=== PATIENT | male | born 1965 | race Caucasian/White ===

== ENCOUNTER 2021-09-28 07:27 | Inpatient (IN) | payer BC ==
[2021-09-28] MEDS ORDERED: ASPIRIN 81 MG PO STA (07:35)
[2021-09-28] MEDS ORDERED: NITROGLYCERIN OINT 1 INCH/GM PACKET TOPICAL STA (07:35)
--- NOTE | 2021-09-28 07:49 | ED ---
General Adult HPI - General Chief complaint: Chest Pain Stated complaint: Chest pain Time Seen by Provider: 09/28/21 07:28 Source: patient, EMS, RN notes reviewed Mode of arrival: EMS Limitations: no limitations - History of Present Illness Initial comments: Patient is a pleasant 55-year-old male presenting to the emergency department with concerns with chest discomfort. Onset of symptoms was around an hour prior to arrival. Discomfort was severe however now is near resolved rated 1/10 following atrial fibrillation by EMS. No history of similar symptoms previously. Discomfort was sternal with some mild radiation towards left arm. No nausea. Patient was sweaty. Patient did feel a little bit short of breath. No history of similar symptoms previously. No leg pain or leg swelling. - Related Data Home Medications Medication Instructions Recorded Confirmed Aspirin Unknown Dose 1 tab PO ONCE PRN 09/28/21 09/28/21 HYDROcodone/APAP 5-325MG [[place] 1 tab PO Q12H PRN 09/28/21 09/28/21 5-325] Allergies Allergy/AdvReac Type Severity Reaction Status Date / Time No Known Allergies Allergy Verified 09/28/21 08:14 Review of Systems ROS Statement: Those systems with pertinent positive or pertinent negative responses have been documented in the HPI. ROS Other: All systems not noted in ROS Statement are negative. Constitutional: Denies: fever Eyes: Denies: eye pain ENT: Denies: ear pain Respiratory: Reports: as per HPI. Denies: cough Cardiovascular: Reports: as per HPI, chest pain Endocrine: Denies: fatigue Gastrointestinal: Denies: abdominal pain, nausea Genitourinary: Denies: dysuria Musculoskeletal: Denies: back pain Skin: Denies: rash Neurological: Denies: weakness Past Medical History Past Medical History: No Reported History Additional Past Medical History / Comment(s): Diverticulitis History of Any Multi-Drug Resistant Organisms: MRSA Date of last positivie culture/infection: 2010 MDRO Source:: finger stitches got infected Additional Past Surgical History / Comment(s): left third and fourth fingertip amputation Past Psychological History: No Psychological Hx Reported Smoking Status: Current every day smoker Past Alcohol Use History: Occasional Past Drug Use History: Marijuana - Past Family History Mother Family Medical History: Hypertension Additional Family Medical History / Comment(s): sepsis General Exam Limitations: no limitations General appearance: alert, in no apparent distress Head exam: Present: normocephalic Eye exam: Present: normal appearance Neck exam: Present: normal inspection Respiratory exam: Present: normal lung sounds bilaterally. Absent: chest wall tenderness Cardiovascular Exam: Present: regular rate, normal rhythm Expanded Peripheral pulses: 2+: Radial (R), Radial (L), Posterior Tibialis (R), Posterior Tibialis (L), Dorsalis Pedis (R), Dorsalis Pedis (L) GI/Abdominal exam: Present: soft. Absent: tenderness Extremities exam: Present: normal inspection. Absent: pedal edema, calf tenderness Neurological exam: Present: alert Psychiatric exam: Present: normal affect, normal mood Skin exam: Present: normal color Course Vital Signs 09/28/21 09/28/21 09/28/21 07:30 07:56 08:29 Temperature 97.8 F Pulse Rate 62 55 L Pulse Rate [ 56 L Pulse Oximetery ] Respiratory 18 16 Rate Blood Pressure 137/102 140/90 O2 Sat by Pulse 95 100 Oximetry EKG Findings - EKG Comments: EKG Findings:: Sinus bradycardia at 58. MT 186. QRS 98. QT 423. QTC 420. Normal axis. Normal QRS. No acute ST change. Medical Decision Making - Medical Decision Making Patient reevaluated. Patient and family updated. Patient symptom-free at this time. Case was discussed with practitioner Juan C, who will admit covering for hospital observation call. Case also discussed with Dr. Castillo with cardiology. He does request echo. Heparin started. - Lab Data Result diagrams: 09/28/21 07:49 09/28/21 07:49 Lab Results 09/28/21 09/28/21 09/28/21 Range/Units 07:49 07:49 07:49 WBC 7.7 (3.8-10.6) k/uL RBC 4.74 (4.30-5.90) m/uL Hgb 15.3 (13.0-17.5) gm/dL Hct 46.1 (39.0-53.0) % MCV 97.4 (80.0-100.0) fL MCH 32.2 (25.0-35.0) pg MCHC 33.1 (31.0-37.0) g/dL RDW 13.4 (11.5-15.5) % Plt Count 337 (150-450) k/uL MPV 7.4 Neutrophils % 57 % Lymphocytes % 31 % Monocytes % 4 % Eosinophils % 5 % Basophils % 1 % Neutrophils # 4.3 (1.3-7.7) k/uL Lymphocytes # 2.4 (1.0-4.8) k/uL Monocytes # 0.3 (0-1.0) k/uL Eosinophils # 0.4 (0-0.7) k/uL Basophils # 0.1 (0-0.2) k/uL PT 10.6 (9.0-12.0) sec INR 1.0 (<1.2) APTT 21.8 L (22.0-30.0) sec D-Dimer 0.24 (<0.60) mg/L FEU Sodium 140 (137-145) mmol/L Potassium 4.1 (3.5-5.1) mmol/L Chloride 109 H (98-107) mmol/L Carbon Dioxide 21 L (22-30) mmol/L Anion Gap 10 mmol/L BUN 19 (9-20) mg/dL Creatinine 0.91 (0.66-1.25) mg/dL Est GFR (CKD-EPI)AfAm >90 (>60 ml/min/1.73 sqM) Est GFR (CKD-EPI)NonAf >90 (>60 ml/min/1.73 sqM) Glucose 102 H (74-99) mg/dL Calcium 9.2 (8.4-10.2) mg/dL Magnesium 2.1 (1.6-2.3) mg/dL Total Bilirubin 0.5 (0.2-1.3) mg/dL AST 33 (17-59) U/L ALT 16 (4-49) U/L Alkaline Phosphatase 63 (38-126) U/L Troponin I (0.000-0.034) ng/mL Total Protein 7.2 (6.3-8.2) g/dL Albumin 4.2 (3.5-5.0) g/dL 09/28/21 Range/Units 07:49 WBC (3.8-10.6) k/uL RBC (4.30-5.90) m/uL Hgb (13.0-17.5) gm/dL Hct (39.0-53.0) % MCV (80.0-100.0) fL MCH (25.0-35.0) pg MCHC (31.0-37.0) g/dL RDW (11.5-15.5) % Plt Count (150-450) k/uL MPV Neutrophils % % Lymphocytes % % Monocytes % % Eosinophils % % Basophils % % Neutrophils # (1.3-7.7) k/uL Lymphocytes # (1.0-4.8) k/uL Monocytes # (0-1.0) k/uL Eosinophils # (0-0.7) k/uL Basophils # (0-0.2) k/uL PT (9.0-12.0) sec INR (<1.2) APTT (22.0-30.0) sec D-Dimer (<0.60) mg/L FEU Sodium (137-145) mmol/L Potassium (3.5-5.1) mmol/L Chloride (98-107) mmol/L Carbon Dioxide (22-30) mmol/L Anion Gap mmol/L BUN (9-20) mg/dL Creatinine (0.66-1.25) mg/dL Est GFR (CKD-EPI)AfAm (>60 ml/min/1.73 sqM) Est GFR (CKD-EPI)NonAf (>60 ml/min/1.73 sqM) Glucose (74-99) mg/dL Calcium (8.4-10.2) mg/dL Magnesium (1.6-2.3) mg/dL Total Bilirubin (0.2-1.3) mg/dL AST (17-59) U/L ALT (4-49) U/L Alkaline Phosphatase (38-126) U/L Troponin I 0.112 H* (0.000-0.034) ng/mL Total Protein (6.3-8.2) g/dL Albumin (3.5-5.0) g/dL - Radiology Data Radiology results: image reviewed (Chest x-ray shows no acute pulmonary disease. Chronic changes.) Critical Care Time Critical Care Time: Yes Total Critical Care Time: 32 Disposition Clinical Impression: Acute non-ST elevation myocardial infarction (NSTEMI) Disposition: ADMITTED IP TO THIS [facility] Referrals: None,Stated [Primary Care Provider] - 1-2 days Time of Disposition: 08:58
[2021-09-28 08:00] LABS: Basophils # (A) 0.1 k/uL (0-0.2); Basophils % (A) 1 %; Eosinophils # (A) 0.4 k/uL (0-0.7); Eosinophils % (A) 5 %; HCT 46.1 % (39.0-53.0); HGB 15.3 gm/dL (13.0-17.5); Lymphocytes # (A) 2.4 k/uL (1.0-4.8); Lymphocytes % (A) 31 %; MCH 32.2 pg (25.0-35.0); MCHC 33.1 g/dL (31.0-37.0); MCV 97.4 fL (80.0-100.0); Mean Platelet Volume 7.4; Monocytes # (A) 0.3 k/uL (0-1.0); Monocytes % (A) 4 %; Neutrophils # (A) 4.3 k/uL (1.3-7.7); Neutrophils % (A) 57 %; Platelet Count 337 k/uL (150-450); RBC 4.74 m/uL (4.30-5.90); RDW 13.4 % (11.5-15.5); WBC 7.7 k/uL (3.8-10.6)
[2021-09-28 08:11] LABS: ALT 16 U/L (4-49); AST 33 U/L (17-59); African American GFR (CKD) >90 (>60 ml/min/1.73 sqM); Albumin 4.2 g/dL (3.5-5.0); Alkaline Phosphatase 63 U/L (38-126); Anion Gap 10 mmol/L; Blood Urea Nitrogen 19 mg/dL (9-20); Calcium 9.2 mg/dL (8.4-10.2); Carbon Dioxide 21 mmol/L (22-30); Chloride 109 mmol/L (98-107); Glucose 102 mg/dL (74-99); Magnesium 2.1 mg/dL (1.6-2.3); Non-African American GFR(CKD) >90 (>60 ml/min/1.73 sqM); Potassium 4.1 mmol/L (3.5-5.1); Sodium 140 mmol/L (137-145); Total Bilirubin 0.5 mg/dL (0.2-1.3); Total Protein 7.2 g/dL (6.3-8.2)
--- NOTE | 2021-09-28 08:14 | XR ---
EXAMINATION TYPE: XR chest 2V DATE OF EXAM: 09/28/2021 HISTORY: Shortness of breath. COMPARISON: None. TECHNIQUE: Single view of the chest is submitted. FINDINGS: Demonstrated are scattered senescent parenchymal change. There is no evidence for focal infiltrate. The heart is stable. Hilar and mediastinal structures are within normal limits. Degenerative changes are seen of the dorsal spine. IMPRESSION: 1. Chronic changes without evidence for acute pulmonary disease.
[2021-09-28 08:32] LABS: Partial Thromboplastin Time 21.8 sec (22.0-30.0); Prothrombin Time 10.6 sec (9.0-12.0)
[2021-09-28] MEDS ORDERED: NITROGLYCERIN SL TABS 0.4 MG TAB SUBLINGUAL PRN (08:56)
[2021-09-28] MEDS ORDERED: HEPARIN SODIUM 1,000 UN/ML (10ML VL) IV ONE (08:56)
[2021-09-28] MEDS ORDERED: NALOXONE 0.4 MG/ML 10 ML VIAL IVP PRN (08:56)
[2021-09-28] MEDS ORDERED: HEPARIN SODIUM 1,000 UN/ML (10ML VL) IV PRN (08:56)
[2021-09-28] MEDS ORDERED: HEPARIN SOD,PORK IN 0.45% NACL 25,000 UNIT in 0.45% NACL 1 250ML.BAG IV SCH (09:00)
[2021-09-28] MEDS ORDERED: NALOXONE 0.4 MG/ML 1 ML VIAL IVP PRN (09:04)
[2021-09-28] MEDS: ATORVASTATIN 80 MG TAB PO SCH (09:13)
[2021-09-28] MEDS ORDERED: SODIUM CHLORIDE 0.9% 1,000 ML IV ONE (09:40)
[2021-09-28] MEDS ORDERED: HEPARIN SODIUM 1,000 UN/ML (10ML VL) ONE (09:41)
[2021-09-28] MEDS ORDERED: VERAPAMIL 2.5 MG/ML 2 ML AMP ONE (09:41)
[2021-09-28] MEDS ORDERED: MIDAZOLAM 2 MG/2 ML VIAL IVP ONE (09:48)
[2021-09-28] MEDS ORDERED: LIDOCAINE 1% INJ 10MG/ML (5 ML VIAL-PF) SQ ONE (09:50)
[2021-09-28] MEDS ORDERED: VERAPAMIL SYRINGE (5 MG/10 ML) INTRAARTER ONE (09:54)
[2021-09-28] MEDS: HEPARIN SODIUM 1,000 UN/ML (10ML VL) IVP ONE ×2 (09:56→10:41)
[2021-09-28] MEDS ORDERED: fentaNYL (PF) 50 MCG/ML 2 ML AMP ONE (09:58)
[2021-09-28] MEDS ORDERED: fentaNYL (PF) 50 MCG/ML 2 ML AMP IVP ONE (10:00)
[2021-09-28] MEDS ORDERED: IOPAMIDOL-370 125ML BTL INJ ONE (11:14)
[2021-09-28] MEDS: CLOPIDOGREL 75 MG TAB PO SCH (11:43)
[2021-09-28] MEDS: HEPARIN SOD,PORK IN 0.45% NACL 25,000 UNIT in 0.45% NACL 1 250ML.BAG IV SCH (11:43)
[2021-09-28] MEDS: NITROGLYCERIN OINT 1 INCH/GM PACKET TOPICAL SCH ×3 (11:52→22:00)
[2021-09-28] MEDS ORDERED: HEPARIN SOD,PORK IN 0.45% NACL 25,000 UNIT in 0.45% NACL 1 250ML.BAG IV ONE (12:13)
[2021-09-28] MEDS ORDERED: NICOTINE 7MG/24HR PATCH TRANSDERM PRN (12:28)
--- NOTE | 2021-09-28 14:15 | CONS ---
CONSULTATION CHIEF COMPLAINT: Chest pain. This is 55-year-old gentleman with strong family history of premature coronary artery disease who presented to hospital with sudden-onset chest pain. His chest discomfort started around 6:15 this morning. EKG done by the EMS and the subsequent EKG done in the emergency room did not reveal any acute ischemic changes. He describes it as a precordial chest pressure, moderate to severe intensity, that radiated to left arm. At the time of my evaluation he is feeling better, having received nitro. The first set of troponin had come back elevated at 0.1. Hemoglobin is normal. Platelet count is normal. Potassium and creatinine are normal. His clinical presentation is consistent with acute coronary syndrome and I advised him to undergo cardiac catheterization for further evaluation. I discussed risks, benefits and alternatives. He understood and accepted. PAST MEDICAL HISTORY: Negative for hypertension, diabetes, dyslipidemia. The patient has a hernia. CURRENT MEDICATIONS: Current medications include [place] and aspirin. ALLERGIES: NO KNOWN DRUG ALLERGIES. FAMILY HISTORY: Significant for premature coronary artery disease. SOCIAL HISTORY: Significant for smoking. There is no history of EtOH abuse or drug abuse. REVIEW OF SYSTEMS: HEENT is unremarkable. CARDIAC: As described above. RESPIRATORY: As described above. GI: Negative. GENITOURINARY: Negative. ALLERGY/IMMUNOLOGY: Negative. SKIN: Negative. MUSCULOSKELETAL: Negative. ENDOCRINE: Negative. DERMATOLOGY: Negative. CONSTITUTIONAL: Negative. ONCOLOGICAL: Negative. DOCK COORDINATOR: Negative. Rest of the system review is not relevant. PHYSICAL EXAMINATION: Comfortable at rest. Vital signs are stable. There is no jugular venous distention. Carotid upstroke is normal. There is no bruit. Chest exam reveals good air entry bilaterally. Heart exam reveals first and second heart sounds. No gallop. No murmur. No rub. Abdomen is soft, nontender. Examination of extremities did not reveal any edema. Peripheral pulses are felt. LABS: Labs show that the hemoglobin is normal, platelet count is normal. Potassium is 4.1. Creatinine is 0.9. Troponin is slightly elevated. AST and ALT are within normal limits. ASSESSMENT: Acute bax-GH-iaoryym-elevation myocardial infarction PLAN: Patient will undergo cardiac catheterization this morning. We will decide on further course of action based on test results. He already received aspirin, has nitro paste on, and is going to receive a bolus of IV heparin and start the drip if necessary. MMODL / IJN: [id number] /
[2021-09-28] MEDS: ACETAMINOPHEN TAB 325 MG TAB PO PRN ×2 (14:57→22:00)
--- NOTE | 2021-09-28 15:06 | CC ---
CARDIAC CATHETERIZATION REPORT INDICATION: Acute ket-AX-rvdoxge-elevation SC. PROCEDURE NOTE: After obtaining informed consent, left heart catheterization and coronary angiogram were performed via the right radial artery using 3-1/2 right and left Javier catheters. The patient tolerated the procedure well without any obvious immediate complications. Right radial artery access was obtained using a micropuncture needle, and catheter and wire were floated into the ascending aorta under fluoroscopic guidance. Catheters were exchanged in the aortic root. Patient received 5 mg of verapamil and a total of 5000 units of IV heparin per protocol. FINDINGS: Central aortic pressure is 120/70 mm. LEFT VENTRICULOGRAM: Left ventriculogram was not performed. ANGIOGRAPHIC DATA: Right coronary artery is a large dominant vessel and is free of significant stenosis. Left main coronary artery is a normal-sized vessel and is free of significant disease. It divides into circumflex coronary artery and left anterior descending coronary artery. Proximal LAD has an area of plaque rupture with a 70% to 80% stenosis. This is the vessel that is responsible for the cvp-VX-xolaxar elevation SC. CONCLUSIONS: Focal stenosis in the proximal LAD, 70% to 80% stenosed. I am going to have Dr. Vangie Jha review the angiographic data and advise on angioplasty with stent. MMODL / IJN: [id number] /
--- NOTE | 2021-09-28 15:26 | PCN ---
PROCEDURE NOTE DATE OF SERVICE: 09/28/2021. PROCEDURE: IFR assessment of left anterior descending coronary artery. PERFORMED BY: Dr. Vangie Jha. Moderate conscious sedation time was 30 minutes. Patient was administered Versed. Oxygen saturation, hemodynamics and EKG were monitored closely. CLINICAL INFORMATION: Mr. Martinez is a 55-year-old gentleman who presented with chest pain and underwent cardiac catheterization by Dr. Peace. There was borderline troponin elevation. Cardiac catheterization revealed a hazy area in the mid LAD location, and I suggested that we perform an IFR. The clinical scenario looked like that of a plaque rupture and the lesion also was hazy, but there was good SRIDEVI-3 flow. PROCEDURE NOTE: The existing 6-Kyrgy[place] introducer in the right radial artery was used to perform the procedure. I had difficulty getting the wire into the ascending aorta. With some manipulation and a Glidewire, I was able to get into the ascending aorta, and using a JL3.5 guide catheter I cannulated the left coronary artery. I advanced the IFR wire way into the distal aspect of the LAD. I did the calibration as per protocol. We gave intracoronary nitroglycerin and I disengaged the guide catheter. I performed IFR. At least 4 readings were obtained. The first reading was 0.83. The subsequent 3 readings were 0.90, 0.93 and 0.97. SRIDEVI-3 flow was noted. After some deliberation, I suggested that we treat him with aspirin and Plavix and repeat another coronary angiogram in 48 to 72 hours. I discussed my thoughts in detail with the patient and family and also spoke to Dr. Peace. I would recommend a repeat cardiac catheterization either Friday or Friday, and if the lesion is significant perform intervention; otherwise pursue medical therapy. I would also recommend an echocardiogram to be performed. A TR band was applied as per protocol. Saturation in the fingers was 95%. He was sent to the room in a stable condition. FINAL IMPRESSION: IFR negative lesion noted in proximal/mid LAD. Repeat cardiac catheterization advised, given the clinical scenario and the hazy appearance of the lesion. Aspirin and Plavix will be given. MMODL / IJN: [id number] /
--- NOTE | 2021-09-28 16:02 | P.HPIM ---
History of Present Illness H&P Date: 09/28/21 History of Presenting Illness: Patient is a very pleasant 55-year-old male with a past medical history of diverticulosis and inguinal hernia. He presented to the emergency department with a chief complaint of chest pain/discomfort. Patient reports around 6:30 this morning he began feeling pain/discomfort to left internal chest in which he described as a pressure like discomfort that radiated into his left shoulder accompanied by dizziness/lightheadedness, shortness of breath, and diaphoresis. Patient denied having any headache, palpitations, nausea, vomiting, or experie ncing any numbness/tingling/weakness in his extremities. Patient denies having any cardiac history but does report a family history of cardiovascular disease and states that he does not follow with a primary care provider and is pretty certain he has undiagnosed hypertension. In the emergency department patient underwent full evaluation. EKG was completed revealing sinus bradycardia at 58 bpm with no noted T-wave or ST abnormalities showing no signs of acute ischemia. Chest x-ray was negative for acute cardiopulmonary process. CBC, coags, and CMP showing no significant abnormalities. Initial troponin resulting in 0.112. Patient given aspirin and started on heparin infusion ACS protocol. Patient admitted under our services with consultation to cardiology. Cardiology taking patient to laborer this morning. Review of systems: Pertinent positives and negatives as discussed in HPI, a complete review of systems was performed and all other systems are negative. Physical exam: Vital signs reviewed and stable. General: Nontoxic, no distress and appears stated age. Derm: Skin warm and dry, normal coloration for ethnicity. Head: Atraumatic, normocephalic and symmetric. Eyes: EOMs intact, no lid lag, and anicteric sclera Mouth: no lip lesions, mucus membranes moist Cardiovascular: regular rate and rhythm with normal S1S2, no murmur, positive posterior tibial pulses bilaterally, and cap refill < 2 seconds. Lungs: Respirations even, regular, and unlabored on room air. Lungs CTA bilaterally, no rhonchi, no rales, no wheezing, and no accessory muscle usage. Abdominal: soft, nontender to palpation, no guarding, no appreciable organomegaly Ext: ROM intact. No gross muscle atrophy, no edema, no contractures Neuro: Speech clear, face symmetrical and CN II-XII grossly intact with no noted focal neuro deficits Psych: Alert and oriented to person, place, time, and situation. Appropriate and pleasant affect. Assessment and Plan of Care: NSTEMI Sinus bradycardia -Cardiology consulted, taking patient to laborer -Heparin infusion per ACS protocol for NSTEMI -Telemetry monitoring -Trend troponins -Aspirin and atorvastatin -Lipid profile with a.m. labs. -Echocardiogram The patient is admitted with an anticipated greater than 2 midnight stay for evaluation of NSTEMI CODE STATUS: Full code DVT prophylaxis: Heparin Discussed with: Patient, patient's family, and RN Anticipated discharge date: Clinical course to determine Anticipated discharge place: Home A total of 45 minutes was spent on the care of this complex patient more than 50% of the time was spent in counseling and care coordination. Past Medical History Past Medical History: No Reported History Additional Past Medical History / Comment(s): Diverticulitis History of Any Multi-Drug Resistant Organisms: MRSA Date of last positivie culture/infection: 2010 MDRO Source:: finger stitches got infected Additional Past Surgical History / Comment(s): left third and fourth fingertip amputation Past Psychological History: No Psychological Hx Reported Smoking Status: Current every day smoker Past Alcohol Use History: Occasional Past Drug Use History: Marijuana - Past Family History Mother Family Medical History: Hypertension Additional Family Medical History / Comment(s): sepsis Medications and Allergies Home Medications Medication Instructions Recorded Confirmed Type Aspirin Unknown Dose 1 tab PO ONCE PRN 09/28/21 09/28/21 History HYDROcodone/APAP 5-325MG [[place] 1 tab PO Q12H PRN 09/28/21 09/28/21 History 5-325] Allergies Allergy/AdvReac Type Severity Reaction Status Date / Time No Known Allergies Allergy Verified 09/28/21 08:14 Physical Exam Vitals: Vital Signs Temp Pulse Pulse Resp BP Pulse Ox 09/28/21 08:29 55 L 16 140/90 100 09/28/21 07:56 56 L 09/28/21 07:30 97.8 F 62 18 137/102 95 Intake and Output 09/27/21 09/28/21 09/28/21 22:59 06:59 14:59 Other: Weight 99.79 kg Results CBC & Chem 7: 09/28/21 07:49 09/28/21 07:49 Labs: Abnormal Lab Results - Last 24 Hours (Table) 09/28/21 09/28/21 09/28/21 Range/Units 07:49 07:49 07:49 APTT 21.8 L (22.0-30.0) sec Chloride 109 H (98-107) mmol/L Carbon Dioxide 21 L (22-30) mmol/L Glucose 102 H (74-99) mg/dL Troponin I 0.112 H* (0.000-0.034) ng/mL
[2021-09-28] MEDS: SODIUM CHLORIDE 0.9% 1,000 ML IV SCH (17:13)
[2021-09-29] MEDS: SODIUM CHLORIDE 0.9% 1,000 ML IV SCH (02:36)
[2021-09-29] MEDS: ACETAMINOPHEN TAB 325 MG TAB PO PRN (06:14)
[2021-09-29] MEDS: PANTOPRAZOLE 40 MG TABLET PO SCH (06:15)
[2021-09-29] MEDS: NITROGLYCERIN OINT 1 INCH/GM PACKET TOPICAL SCH ×4 (06:15→23:26)
[2021-09-29] MEDS: HYDROcodone/APAP 5-325MG 1 EACH TAB PO PRN ×2 (08:07→15:20)
[2021-09-29] MEDS: CLOPIDOGREL 75 MG TAB PO SCH (08:07)
[2021-09-29] MEDS: ATORVASTATIN 80 MG TAB PO SCH (08:07)
[2021-09-29] MEDS ORDERED: ASPIRIN 81 MG PO SCH (09:00)
[2021-09-29 09:10] LABS: Basophils # (A) 0.1 k/uL (0-0.2); Basophils % (A) 1 %; Eosinophils # (A) 0.3 k/uL (0-0.7); Eosinophils % (A) 4 %; HCT 41.3 % (39.0-53.0); HGB 13.4 gm/dL (13.0-17.5); Lymphocytes % (A) 24 %; MCH 32.5 pg (25.0-35.0); MCHC 32.5 g/dL (31.0-37.0); Mean Platelet Volume 7.9; Monocytes # (A) 0.3 k/uL (0-1.0); Monocytes % (A) 3 %; Neutrophils # (A) 5.6 k/uL (1.3-7.7); Neutrophils % (A) 67 %; Platelet Count 256 k/uL (150-450); RBC 4.13 m/uL (4.30-5.90); RDW 13.3 % (11.5-15.5); WBC 8.4 k/uL (3.8-10.6)
[2021-09-29 09:19] LABS: Partial Thromboplastin Time 53.7 sec (22.0-30.0); Prothrombin Time 11.2 sec (9.0-12.0)
[2021-09-29 09:25] LABS: African American GFR (CKD) >90 (>60 ml/min/1.73 sqM); Anion Gap 8 mmol/L; Blood Urea Nitrogen 14 mg/dL (9-20); Calcium 8.2 mg/dL (8.4-10.2); Carbon Dioxide 19 mmol/L (22-30); Chloride 111 mmol/L (98-107); Glucose 146 mg/dL (74-99); Non-African American GFR(CKD) >90 (>60 ml/min/1.73 sqM); Sodium 138 mmol/L (137-145)
--- NOTE | 2021-09-29 13:41 | P.PN ---
Subjective Progress Note Date: 09/29/21 History of Presenting Illness: Patient is a very pleasant 55-year-old male with a past medical history of diverticulosis and inguinal hernia. He presented to the emergency department wi th a chief complaint of chest pain/discomfort. Patient reports around 6:30 this morning he began feeling pain/discomfort to left internal chest in which he described as a pressure like discomfort that radiated into his left shoulder accompanied by dizziness/lightheadedness, shortness of breath, and diaphoresis. Patient denied having any headache, palpitations, nausea, vomiting, or experiencing any numbness/tingling/weakness in his extremities. Patient denies having any cardiac history but does report a family history of cardiovascular disease and states that he does not follow with a primary care provider and is pretty certain he has undiagnosed hypertension. In the emergency department patient underwent full evaluation. EKG was completed revealing sinus bradycardia at 58 bpm with no noted T-wave or ST abnormalities showing no signs of acute ischemia. Chest x-ray was negative for acute cardiopulmonary process. CBC, coags, and CMP showing no significant abnormalities. Initial troponin resulting in 0.112. Patient given aspirin and started on heparin infusion ACS protocol. Patient admitted under our services with consultation to cardiology. Cardiology taking patient to mobile lab technician this morning. Interval history: Patient was seen and examined at the bedside. Patient he stated that he had some tightness and shortness of breath earlier today but now he is chest pain free. Patient had a left heart cath yesterday that showed paced lesion in the mid LAD. Cardiology plan for repeat heart cath on Friday. Otherwise no acute changes overnight. Physical exam: Vital signs reviewed and stable. General: Nontoxic, no distress and appears stated age. Derm: Skin warm and dry, normal coloration for ethnicity. Head: Atraumatic, normocephalic and symmetric. Eyes: EOMs intact, no lid lag, and anicteric sclera Mouth: no lip lesions, mucus membranes moist Cardiovascular: regular rate and rhythm with normal S1S2, no murmur, positive posterior tibial pulses bilaterally, and cap refill < 2 seconds. Lungs: Respirations even, regular, and unlabored on room air. Lungs CTA bilaterally, no rhonchi, no rales, no wheezing, and no accessory muscle usage. Abdominal: soft, nontender to palpation, no guarding, no appreciable organomeg karol Ext: ROM intact. No gross muscle atrophy, no edema, no contractures Neuro: Speech clear, face symmetrical and CN II-XII grossly intact with no noted focal neuro deficits Psych: Alert and oriented to person, place, time, and situation. Appropriate and pleasant affect. Assessment and Plan of Care: NSTEMI Sinus bradycardia -Status post left heart cath which showed hazy lesion in the mid LAD. -Heparin infusion per ACS protocol for NSTEMI -Telemetry monitoring -Trend troponins -Aspirin and atorvastatin -Lipid profile with a.m. labs. -Echocardiogram The patient is admitted with an anticipated greater than 2 midnight stay for evaluation of NSTEMI CODE STATUS: Full code DVT prophylaxis: Heparin Discussed with: Patient, patient's family, and RN Anticipated discharge date: Clinical course to determine Anticipated discharge place: Home A total of 45 minutes was spent on the care of this complex patient more than 50% of the time was spent in counseling and care coordination. Objective - Vital Signs Vital signs: Vital Signs Temp 97.6 F 09/29/21 08:00 Pulse 57 L 09/29/21 08:10 Resp 17 09/29/21 08:10 BP 132/77 09/29/21 08:00 Pulse Ox 95 09/29/21 08:00 FiO2 Intake & Output 09/28/21 09/29/21 09/29/21 18:59 06:59 18:59 Intake Total 500 1259.64 180 Balance 500 1259.64 180 Weight 99.79 kg Intake: IV 500 Intake, IV Titration 1019.64 Amount Heparin Sod,Pork in 0.45% 119.64 NaCl 25,000 unit In 0.45 % NaCl 1 250ml.bag @ 10 UNITS/KG/HR 9.979 mls/hr IV .Q24H ZOYA Rx#: [id number] Sodium Chloride 0.9% 1, 900 000 ml @ 75 mls/hr IV . [id number] [id number] Rx#:[id number] Oral 240 180 Other: Voiding Method Toilet Toilet # Voids 1 2 - Labs CBC & Chem 7: 09/29/21 08:32 09/29/21 08:32 Labs: Abnormal Lab Results - Last 24 Hours (Table) 09/28/21 09/28/21 09/28/21 Range/Units 12:39 15:31 18:33 RBC (4.30-5.90) m/uL APTT 58.5 H (22.0-30.0) sec Chloride (98-107) mmol/L Carbon Dioxide (22-30) mmol/L Glucose (74-99) mg/dL Calcium (8.4-10.2) mg/dL Troponin I 0.487 H* 0.601 H* (0.000-0.034) ng/mL 09/29/21 09/29/21 09/29/21 Range/Units 08:32 08:32 08:32 RBC 4.13 L (4.30-5.90) m/uL APTT 53.7 H (22.0-30.0) sec Chloride 111 H (98-107) mmol/L Carbon Dioxide 19 L (22-30) mmol/L Glucose 146 H (74-99) mg/dL Calcium 8.2 L (8.4-10.2) mg/dL Troponin I (0.000-0.034) ng/mL
[2021-09-29] MEDS: HEPARIN SOD,PORK IN 0.45% NACL 25,000 UNIT in 0.45% NACL 1 250ML.BAG IV SCH (13:55)
--- NOTE | 2021-09-29 14:02 | PN ---
PROGRESS NOTE FOLLOW-UP NOTE: This 55-year-old gentleman was admitted to hospital with kbm-SD-yjofuoz-elevation MT. He underwent cardiac catheterization by me that revealed significant stenosis in the LAD. He had an IFR which came back insignificant. We decided to treat him with medical therapy, including aspirin, Lipitor, Plavix, intravenous heparin and nitro paste, and do another catheterization on him tomorrow to see whether the LAD lesion is significant and whether he needs angioplasty. He is doing well and is free of symptoms; denies chest pain, difficulty in breathing, palpitations, dizziness or syncope. On exam, he is comfortable at rest. Vital signs are stable. There is no jugular venous distention. Chest exam reveals good air entry bilaterally. Heart exam reveals first and second heart sounds. No gallop. Examination of extremities did not reveal any edema. Peripheral pulses are felt. ASSESSMENT: Acute wkn-MY-qojoqsw elevation myocardial infarction, status post catheterization and medical therapy. We are going to do another heart catheterization on him tomorrow to look at the LAD. MMODL / IJN: [id number] /
[2021-09-29] MEDS ORDERED: MAGNESIUM HYDROXIDE 2,400 MG/10 ML CUP PO PRN (14:25)
--- NOTE | 2021-09-29 14:32 | CA ---
Transthoracic Echo Report Name: Marcus Martinez Age: 55 Gender: M : 1965 Exam Date: 09/28/2021 13:07 Exam Location: [facility] Ht (in): 71 Wt (lb): 220 Ordering Physician: Justin Gillis DO Attending/Referring Phys: Antique Refinisher Danielle Will RDCS Procedure CPT: Indications: nstemi Cardiac Hx: Technical Quality: Contrast 1: Total Dose (mL): Contrast 2: Total Dose (mL): MEASUREMENTS (Male / Female) Normal Values 2D ECHO LV Diastolic Diameter PLAX 4.5 cm 4.2 - 5.9 / 3.9 - 5.3 cm LV Systolic Diameter PLAX 2.9 cm IVS Diastolic Thickness 1.0 cm 0.6 - 1.0 / 0.6 - 0.9 cm LVPW Diastolic Thickness 1.1 cm 0.6 - 1.0 / 0.6 - 0.9 cm LV Relative Wall Thickness 0.5 RV Internal Dim ED PLAX 3.0 cm LA Systolic Diameter LX 3.4 cm 3.0 - 4.0 / 2.7 - 3.8 cm LA Volume 48.7 cm??? 18 - 58 / 22 - 52 cm??? M-MODE Aortic Root Diameter MM 3.5 cm MV E Point Septal Separation 0.7 cm AV Cusp Separation MM 2.2 cm DOPPLER AV Peak Velocity 163.8 cm/s AV Peak Gradient 10.7 mmHg MV Area PHT 2.0 cm??? Mitral E Point Velocity 61.6 cm/s Mitral A Point Velocity 83.5 cm/s Mitral E to A Ratio 0.7 MV Deceleration Time 382.3 ms MV E' Velocity 7.2 cm/s Mitral E to MV E' Ratio 8.6 TR Peak Velocity 204.3 cm/s TR Peak Gradient 16.7 mmHg Right Ventricular Systolic Press 21.1 mmHg FINDINGS Left Ventricle Mildly increased left ventricular wall thickness. Normal left ventricular systolic function with no obvious regional wall motion abnormalities. Left ventricular ejection fraction is estimated at 55-60 %. Right Ventricle Normal right ventricular size and function. Right Atrium Normal right atrial size. Left Atrium Normal left atrial size. No evidence for an atrial septal defect. Mitral Valve Structurally normal mitral valve. No mitral stenosis, regurgitation or prolapse. Aortic Valve Trileaflet aortic valve. No aortic valve stenosis or regurgitation. Tricuspid Valve Structurally normal tricuspid valve. Mild tricuspid regurgitation. Pulmonic Valve Trace pulmonic regurgitation. Pericardium No pericardial effusion. Aorta Normal size aortic root and proximal ascending aorta. CONCLUSIONS Normal LV systolic function No wall motion abnormalities Previewed by: Dr. Chepe Peace MD (Electronically Signed) Final Date: 29 September 2021 14:31
[2021-09-29] MEDS: bisacodyL 5 MG TABLET.DR PO SCH (17:29)
[2021-09-29 18:06] LABS: LDL Cholesterol,Calculated 71.1 mg/dL (0.0-131.0)
[2021-09-30] MEDS: HYDROcodone/APAP 5-325MG 1 EACH TAB PO PRN ×2 (05:10→19:29)
[2021-09-30] MEDS: NITROGLYCERIN OINT 1 INCH/GM PACKET TOPICAL SCH ×3 (05:49→19:29)
[2021-09-30] MEDS: PANTOPRAZOLE 40 MG TABLET PO SCH (05:50)
[2021-09-30] MEDS ORDERED: ASPIRIN 81 MG PO STA (09:10)
[2021-09-30] MEDS: ATORVASTATIN 80 MG TAB PO SCH (09:21)
[2021-09-30] MEDS: CLOPIDOGREL 75 MG TAB PO SCH (09:21)
[2021-09-30] MEDS ORDERED: VERAPAMIL 2.5 MG/ML 2 ML AMP ONE (09:57)
[2021-09-30] MEDS ORDERED: IV FLUID CONTINUATION 300 ML IV ONE (10:00)
[2021-09-30 10:10] LABS: African American GFR (CKD) >90 (>60 ml/min/1.73 sqM); Anion Gap 9 mmol/L; Blood Urea Nitrogen 11 mg/dL (9-20); Calcium 8.9 mg/dL (8.4-10.2); Carbon Dioxide 22 mmol/L (22-30); Chloride 112 mmol/L (98-107); Glucose 87 mg/dL (74-99); Non-African American GFR(CKD) >90 (>60 ml/min/1.73 sqM); Potassium 4.2 mmol/L (3.5-5.1); Sodium 143 mmol/L (137-145)
[2021-09-30] MEDS ORDERED: fentaNYL (PF) 50 MCG/ML 2 ML AMP ONE (10:13)
[2021-09-30 10:15] LABS: HCT 41.6 % (39.0-53.0); HGB 14.2 gm/dL (13.0-17.5); MCH 33.5 pg (25.0-35.0); MCHC 34.1 g/dL (31.0-37.0); MCV 98.3 fL (80.0-100.0); Mean Platelet Volume 8.7; Platelet Count 230 k/uL (150-450); RBC 4.24 m/uL (4.30-5.90); RDW 13.2 % (11.5-15.5); WBC 8.4 k/uL (3.8-10.6)
[2021-09-30] MEDS: MIDAZOLAM 2 MG/2 ML VIAL IV ONE ×2 (10:19→10:29)
[2021-09-30] MEDS ORDERED: fentaNYL (PF) 50 MCG/ML 2 ML AMP IV ONE (10:21)
[2021-09-30] MEDS ORDERED: LIDOCAINE 1% PF 10 MG/ML (5 ML AMP) SQ ONE (10:22)
[2021-09-30] MEDS ORDERED: HEPARIN SODIUM 1,000 UN/ML (10ML VL) ONE (10:37)
[2021-09-30] MEDS ORDERED: IOPAMIDOL-370 125ML BTL INJ ONE (11:01)
--- NOTE | 2021-09-30 11:01 | P.PN ---
Subjective 55-year-old male history of diverticulosis and hernia. Presented due to chest pain. Found to have elevated troponin. He is going for cardiac catheterization today. This morning he denies any respiratory or complaints no GI complaints no chest pain. Objective - Vital Signs Vital signs: Vital Signs Temp 98.2 F 09/30/21 07:43 Pulse 51 L 09/30/21 08:00 Resp 16 09/30/21 08:00 BP 147/84 09/30/21 07:43 Pulse Ox 99 09/30/21 07:43 FiO2 Intake & Output 09/29/21 09/30/21 09/30/21 18:59 06:59 18:59 Intake Total 430 240 Balance 430 240 Intake: Intake, IV Titration 250 Amount Heparin Sod,Pork in 0.45% 250 NaCl 25,000 unit In 0.45 % NaCl 1 250ml.bag @ 10 UNITS/KG/HR 9.979 mls/hr IV .Q24H [facility] Rx#: [id number] Oral 180 240 Other: Voiding Method Toilet Toilet # Voids 3 4 1 - Exam Awake alert oriented 3, no acute distress Head and neck: Anicteric sclera, extraocular movements intact, no facial asymmetry, oropharyngeal mucosa is moist without any lesions, neck is supple without rigidity, no neck masses or neck vein distention Heart: Regular rhythm and rate, S1, S2; no murmurs rubs or gallops Lungs: Breath sounds present bilateral, no wheezing, rhonchi or crackles Abdomen: Bowel sounds present throughout, abdomen is soft, nontender, nondistended, no involuntary guarding, no hernias or organomegaly, no flank tenderness Extremities: No peripheral edema, no cyanosis, warm well perfused with palpable dorsalis pedis pulses bilateral and good capillary refill, without joint swelling or deformities - Labs CBC & Chem 7: 09/30/21 09:23 09/30/21 09:23 Labs: Abnormal Lab Results - Last 24 Hours (Table) 09/29/21 09/30/21 09/30/21 Range/Units 08:32 09:23 09:23 RBC 4.24 L (4.30-5.90) m/uL Chloride 112 H (98-107) mmol/L HDL Cholesterol 29.30 L (40.00-60.00) mg/dL Assessment and Plan Assessment: #Non-STEMI Status post cardiac cath 09/28/21,, showed lesion in the medial LAD Currently on Plavix, statin, heparin drip Plan for repeat cardiac catheterization this morning No beta vaughn due to bradycardia Echocardiogram #Sinus bradycardia Continue to monitor on telemetry #Tobacco addiction Continue nicotine patch Lifestyle modifications DVT prophylaxis: Currently on heparin drip
[2021-09-30] MEDS ORDERED: SODIUM CHLORIDE 0.9% 1,000 ML IV ONE (11:02)
--- NOTE | 2021-09-30 11:02 | P.PCN ---
Description of Procedure: PROCEDURES PERFORMED: Left coronary angiography, iFR LAD INDICATION: Moderate disease PROCEDURE: After the risks, benefits and alternatives of the above mentioned procedure explained in detail with the patient, informed consent was obtained. Patient was taken to the catheterization lab and prepped and draped in usual fashion. A 6 Fr sheath had been placed in the right femoral artery for diagnostic procedure. Given intermediate lesion I was asked to perform iFR. Heparin was given for ACT > 200. A 6Fr FL 4 catheter was used to engage the left main. A 0.014 iFR wire was advanced into the left main and normalized. The iFR wire was advanced 1 cm distal to the lesion and iFR was performed and was normal at 0.95. The wire and catheter were removed. A femoral angiogram showed adequate anatomy for closure and a 6Fr Angioseal was placed with hemostasis achieved. The patient tolerated the procedure well. Patient was tr ansported back to the post catheterization holding area in stable condition. Conscious Sedation: Patient was monitored under the direct supervision of vision of myself for conscious sedation using Versed and fentanyl for a total duration of 15 minutes FINAL IMPRESSION: 1. Intermediate 50% LAD stenosis, iFR normal at 0.95 PLAN: 1. Aggressive risk factor modification per most recent ACC/AHA guidelines.
--- NOTE | 2021-09-30 11:05 | CC ---
CARDIAC CATHETERIZATION REPORT INDICATION: Acute nvu-SB-ioxwjqm elevation PR. This is a 55-year-old gentleman who presented to hospital with non-STEMI, underwent cardiac catheterization that revealed an area of plaque rupture with a borderline lesion that was hemodynamically insignificant. We treated him with heparin and advised him to undergo another cardiac catheterization to reassess the lesion. He was explained risks, benefits and alternatives, understood and accepted. PROCEDURE NOTE: After obtaining informed consent, left heart catheterization and coronary angiogram were performed via the right femoral artery using standard Javier catheters. Patient tolerated the procedure well without any obvious immediate complications. He received moderate conscious sedation. Total sedation time was 11 minutes. FINDINGS: HEMODYNAMICS: Left ventricular end-diastolic pressure is 9 mm. There is no significant gradient across the aortic valve. LEFT VENTRICULOGRAM: Left ventriculogram was not performed. ANGIOGRAPHIC DATA: Left main coronary artery is a normal-sized vessel and is free of stenosis. It divides into left anterior descending coronary artery and circumflex coronary artery. Circumflex coronary artery and its branches are free of significant disease. LAD shows a moderate area of disease in the proximal portion. This actually looks somewhat better compared to the previous catheterization. Right coronary artery and its branches are free of significant stenosis. CONCLUSIONS: Moderate area of disease involving the LAD. Patient will undergo an IFR of the same. If it is significant, he will undergo stenting; if not, will treat him medically and discharge him home tomorrow. Followup in the office. MMODL / IJN: [id number] /
[2021-09-30] MEDS: bisacodyL 5 MG TABLET.DR PO SCH (16:16)
[2021-09-30] MEDS: ACETAMINOPHEN TAB 325 MG TAB PO PRN (16:16)
[2021-10-01] MEDS: NITROGLYCERIN OINT 1 INCH/GM PACKET TOPICAL SCH ×2 (00:07→05:49)
[2021-10-01 04:23] VITALS: TEMP 98.4
[2021-10-01] MEDS: PANTOPRAZOLE 40 MG TABLET PO SCH (06:39)
[2021-10-01] MEDS: HYDROcodone/APAP 5-325MG 1 EACH TAB PO PRN (06:40)
[2021-10-01] MEDS: bisacodyL 5 MG TABLET.DR PO SCH (08:04)
[2021-10-01] MEDS: ATORVASTATIN 80 MG TAB PO SCH (08:04)
[2021-10-01] MEDS: CLOPIDOGREL 75 MG TAB PO SCH (08:04)
[2021-10-01 08:34] VITALS: RESP 16
[2021-10-01] MEDS ORDERED: ASPIRIN 81 MG PO SCH (09:00)
[2021-10-01 09:43] LABS: HCT 44.5 % (39.0-53.0); HGB 14.7 gm/dL (13.0-17.5); MCH 32.7 pg (25.0-35.0); MCHC 32.9 g/dL (31.0-37.0); MCV 99.3 fL (80.0-100.0); Mean Platelet Volume 7.5; Platelet Count 286 k/uL (150-450); RBC 4.48 m/uL (4.30-5.90); RDW 12.8 % (11.5-15.5); WBC 9.8 k/uL (3.8-10.6)
[2021-10-01 09:56] LABS: African American GFR (CKD) >90 (>60 ml/min/1.73 sqM); Anion Gap 12 mmol/L; Blood Urea Nitrogen 14 mg/dL (9-20); Calcium 8.9 mg/dL (8.4-10.2); Carbon Dioxide 23 mmol/L (22-30); Chloride 107 mmol/L (98-107); Glucose 111 mg/dL (74-99); Non-African American GFR(CKD) >90 (>60 ml/min/1.73 sqM); Potassium 4.4 mmol/L (3.5-5.1); Sodium 142 mmol/L (137-145)
[2021-10-01] MEDS ORDERED: lisinopriL 10 MG TAB PO SCH (10:15)
[2021-10-01 12:48] VITALS: BP 164/95; PULSE 65
--- NOTE | 2021-10-01 14:01 | P.PN ---
Subjective Progress Note Date: 10/01/21 HISTORY OF PRESENT ILLNESS: This is a 55-year-old male who is admitted to the hospital secondary to Non- STEMI. He underwent cardiac cath yesterday with Dr. Grewal revealing intermed iate 50% LAD stenosis and iFR normal at 0.95. Patient examined this morning in the chair. He denies shortness of breath. Reports occasional chest pains that are not worse with exertion. Blood pressure on the higher side with a recent reading of 164/95. Echocardiogram revealed ejection fraction 55-60%. PHYSICAL EXAM: VITAL SIGNS: Reviewed. GENERAL: Well-developed in no acute distress. NECK: Supple. No JVD or thyromegaly LUNGS: Respirations even and unlabored. Lungs essentially clear to auscultation bilaterally. HEART: Regular rate and rhythm. S1 and S2 heard. EXTREMITIES: Normal range of motion. No clubbing or cyanosis. Peripheral pulses intact. No lower extremity edema ASSESSMENT: Non-STEMI, status post cardiac catheterization revealing 50% LAD stenosis Hypertension Nicotine dependence PLAN: Continue current cardiac medications Advil lisinopril 10 mg daily for optimal blood pressure control Patient is currently stable from a cardiac standpoint Further recommendations pending patient course Nurse practitioner note has been reviewed by physician. Signing provider agrees with the documented findings, assessment, and plan of care. Objective - Vital Signs Vital signs: Vital Signs Temp 98.4 F 10/01/21 08:00 Pulse 65 10/01/21 12:40 Resp 16 10/01/21 12:40 BP 164/95 10/01/21 12:40 Pulse Ox 96 10/01/21 12:40 FiO2 Intake & Output 09/30/21 10/01/21 10/01/21 18:59 06:59 18:59 Intake Total 200 600 600 Output Total 500 Balance -300 600 600 Intake: IV 200 Oral 600 600 Output: Urine 500 Other: Voiding Method Toilet Toilet Toilet # Voids 1 2 - Labs CBC & Chem 7: 10/01/21 09:21 10/01/21 09:21 Labs: Abnormal Lab Results - Last 24 Hours (Table) 10/01/21 Range/Units 09:21 Glucose 111 H (74-99) mg/dL
--- NOTE | 2021-10-01 14:07 | P.DS ---
Providers Date of admission: 09/28/21 19:13 Attending physician: Javan Cooper MD Consults: 09/28/21 08:57 Consult Physician Routine Consulting Provider: [facility] Consult Reason/Comments: Chest Pain, NSTEMI Do you want consulting provider notified?: Yes Primary care physician: Stated None Hospital Course: Date of admission: 09/28/2021 Date of discharge: 10/01/2021 Disposition: Discharged home on aspirin, Plavix, atorvastatin, lisinopril. Follow up with cardiology in 1 week; smoking cessation strongly advised; check BMP in 1 week Discharge diagnosis Non-STEMI Sinus bradycardia Hypertension [facility] Procedures Left heart catheterization: 09/28/21, no intervention Left heart catheterization with IFR: 09/30/21:50% LAD occlusion, no intervention recommended for medical management Echocardiogram normal EF, no wall motion abnormalities Reason for admission Patient is a very pleasant 55-year-old male with a past medical history of div erticulosis and inguinal hernia. He presented to the emergency department with a chief complaint of chest pain/discomfort. Patient reports around 6:30 this morning he began feeling pain/discomfort to left internal chest in which he described as a pressure like discomfort that radiated into his left shoulder accompanied by dizziness/lightheadedness, shortness of breath, and diaphoresis. Patient denied having any headache, palpitations, nausea, vomiting, or experiencing any numbness/tingling/weakness in his extremities. Patient denies having any cardiac history but does report a family history of cardiovascular disease and states that he does not follow with a primary care provider and is pretty certain he has undiagnosed hypertension. In the emergency department patient underwent full evaluation. EKG was completed revealing sinus bradycardia at 58 bpm with no noted T-wave or ST abnormalities showing no signs of acute ischemia. Chest x-ray was negative for acute cardiopulmonary process. CBC, coags, and CMP showing no significant abnormalities. Initial troponin resulting in 0.112. Patient given aspirin and started on heparin infusion ACS protocol. Patient admitted under our services with consultation to cardiology. Cardiology taking patient to systems testing laboratory technician this morning. Hospital course Patient was admitted on antiplatelets, statin and heparin drip. Underwent cardiac catheterization was 09/28/21. Found a lesion on LAD that initially needed a second look with IFR which was done 09/30/21 found to be 50% no need for intervention. Patient was overall in good condition no further chest pain or discomfort and he was cleared for discharge home with cardiology with aspirin Plavix atorvastatin and lisinopril for hypertension. He'll follow-up with cardiology in 1 week. On the day of discharge patient was awake alert oriented 3 no any distress, lungs are clear to auscultation, cardiovascular heart rate was in 60s regular S1-S2, abdomen is soft nontender nondistended, extremities no peripheral edema calf tenderness Plan - Discharge Summary Discharge Rx Participant: Yes New Discharge Prescriptions: New Aspirin 81 mg PO DAILY #30 tab Nicotine 7Mg/24Hr Patch [Habitrol] 1 patch TRANSDERM DAILY PRN patch PRN Reason: Nicotine Cravings Atorvastatin [Lipitor] 80 mg PO DAILY #30 tab lisinopriL [Zestril] 10 mg PO DAILY #30 tab Clopidogrel [Plavix] 75 mg PO DAILY #30 tab Continue HYDROcodone/APAP 5-325MG [Galva 5-325] 1 tab PO Q12H PRN PRN Reason: Pain Discontinued Aspirin Unknown Dose 1 tab PO ONCE PRN PRN Reason: Pain Discharge Medication List HYDROcodone/APAP 5-325MG [Galva 5-325] 1 tab PO Q12H PRN 09/28/21 [History] Aspirin 81 mg PO DAILY #30 tab 10/01/21 [Rx] Atorvastatin [Lipitor] 80 mg PO DAILY #30 tab 10/01/21 [Rx] Clopidogrel [Plavix] 75 mg PO DAILY #30 tab 10/01/21 [Rx] Nicotine 7Mg/24Hr Patch [Habitrol] 1 patch TRANSDERM DAILY PRN patch 10/01/21 [Rx] lisinopriL [Zestril] 10 mg PO DAILY #30 tab 10/01/21 [Rx] Follow up Appointment(s)/Referral(s): Quang Oh MD [STAFF PHYSICIAN] - 1 Week Chepe Peace MD [STAFF PHYSICIAN] - 1 Week Activity/Diet/Wound Care/Special Instructions: CHECK BMP IN 1 WEEK Discharge Disposition: HOME SELF-CARE
== END 2021-10-01 16:13 | disposition home or self-care (01) | DRG 282 ==
LOC: EC 07:27 → 3SCARD 08:57 → OBSVTOIN 19:13
PROVIDERS: ADMIT Hospitalist; ATTEND Hospitalist
PROC: B2111ZZ Fluoroscopy of Multiple Coronary Arteries using Low Osmolar Contrast (ICD-10-PCS; principal; 2021-09-28 13:10)
PROC: 4A023N7 Measurement of Cardiac Sampling and Pressure, Left Heart, Percutaneous Approach (ICD-10-PCS; principal; 2021-09-28 13:10)
PROC: 4A033BC Measurement of Arterial Pressure, Coronary, Percutaneous Approach (ICD-10-PCS; 2021-09-28 13:10)
PROC: B2111ZZ Fluoroscopy of Multiple Coronary Arteries using Low Osmolar Contrast (ICD-10-PCS; 2021-09-30)
PROC: 4A023N7 Measurement of Cardiac Sampling and Pressure, Left Heart, Percutaneous Approach (ICD-10-PCS; 2021-09-30)
PROC: 4A033BC Measurement of Arterial Pressure, Coronary, Percutaneous Approach (ICD-10-PCS; 2021-09-30)
DX: I21.4 Non-ST elevation (NSTEMI) myocardial infarction (principal); F17.200 Nicotine dependence, unspecified, uncomplicated; I10 Essential (primary) hypertension; I25.10 Atherosclerotic heart disease of native coronary artery without angina pectoris; Z28.310 Unvaccinated for COVID-19; R00.1 Bradycardia, unspecified; K57.90 Diverticulosis of intestine, part unspecified, without perforation or abscess without bleeding; K40.90 Unilateral inguinal hernia, without obstruction or gangrene, not specified as recurrent; Z71.6 Tobacco abuse counseling; Z86.14 Personal history of Methicillin resistant Staphylococcus aureus infection; Z89.022 Acquired absence of left finger(s); Z82.49 Family history of ischemic heart disease and other diseases of the circulatory system; Z83.1 Family history of other infectious and parasitic diseases
CPT/HCPCS: 36415; 71046; 80048; 80053; 80061; 83735; 84443; 84484; 85025; 85027; 85379; 85610; 85730; 93005; 93306; 93454; 93458; 93799; 96374; 99291

== ENCOUNTER 2021-11-06 05:45 | Day surgery (SDC) | payer BC ==
[2021-11-02 13:53] VITALS: BMI 29.2
[~2021-11-06 05:45] MED LIST: ACETAMINOPHEN TAB 500 MG TAB PO PRN; DEXAMETHASONE SOD PHOSPHATE 4 MG/ML 1 ML VIAL IV ONE; HEPARIN SODIUM,PORCINE/PF 5,000 UNIT/0.5 ML SYRINGE SQ PRN; LIDOCAINE 1% (10MG/ML) FOR IV START INTRADERMA PRN
[2021-11-06 06:57] LABS: Glucose,Whole Blood 95 mg/dL (70-110)
[2021-11-06] MEDS ORDERED: ONDANSETRON 4 MG/2 ML VIAL IVP PRN (07:00)
[2021-11-06] MEDS: LACTATED RINGERS 1,000 ML IV SCH ×2 (07:16→09:29)
[2021-11-06] MEDS ORDERED: NEOSTIGMINE 1 MG/ML 10 ML VIAL ONE (07:54)
[2021-11-06] MEDS ORDERED: ROCURONIUM 10 MG/ML (5 ML VIAL) IV ONE (07:54)
[2021-11-06] MEDS ORDERED: PROPOFOL 10 MG/ML 20 ML VIAL IV ONE (07:54)
[2021-11-06] MEDS ORDERED: SUCCINYLCHOLINE CHLORIDE 200 MG/10 ML VIAL IV ONE (07:54)
[2021-11-06] MEDS ORDERED: KETAMINE 10 MG/ML 20 ML VIAL ONE (07:54)
[2021-11-06] MEDS ORDERED: fentaNYL (PF) 50 MCG/ML 2 ML AMP ONE (07:54)
[2021-11-06] MEDS ORDERED: LIDOCAINE 2% INJ 20 MG/ML (2 ML VIAL) ONE (07:54)
[2021-11-06] MEDS ORDERED: GLYCOPYRROLATE 0.2 MG/ML 2 ML VIAL ONE (07:54)
[2021-11-06] MEDS ORDERED: MIDAZOLAM 2 MG/2 ML VIAL ONE (07:54)
--- NOTE | 2021-11-06 08:12 | P.GSHP ---
History of Present Illness H&P Date: 11/06/21 Chief Complaint: Left inguinal hernia This a 56-year-old male presents today for laparoscopic robotic-assisted repair of left inguinal hernia. Patient developed a mass his left groin. Past Medical History Past Medical History: GERD/Reflux, Myocardial Infarction (PR) Additional Past Medical History / Comment(s): Diverticulitis, Last Myocardial Infarction Date:: 09/28/21 History of Any Multi-Drug Resistant Organisms: MRSA Date of last positivie culture/infection: 2010 MDRO Source:: finger stitches got infected Past Surgical History: Heart Catheterization, Hernia Repair Additional Past Surgical History / Comment(s): left third and fourth fingertip amputation, rt inguinal hernia, 09/28/21 heart cath Past Anesthesia/Blood Transfusion Reactions: No Reported Reaction Past Psychological History: No Psychological Hx Reported Smoking Status: Former smoker Past Alcohol Use History: Occasional Additional Past Alcohol Use History / Comment(s): quit smoking 09/28/21, smoked age [age], started again 2019 Past Drug Use History: Marijuana - Past Family History Mother Family Medical History: No Reported History Additional Family Medical History / Comment(s): . Medications and Allergies Home Medications Medication Instructions Recorded Confirmed Type Aspirin 81 mg PO DAILY #30 tab 10/01/21 11/02/21 Rx Clopidogrel [Plavix] 75 mg PO DAILY #30 tab 10/01/21 11/02/21 Rx Atorvastatin [Lipitor] 80 mg PO 1700 11/02/21 11/02/21 History Losartan [Cozaar] 50 mg PO 1700 11/02/21 11/02/21 History Allergies Allergy/AdvReac Type Severity Reaction Status Date / Time No Known Allergies Allergy Verified 11/02/21 13:32 Surgical - Exam Vital Signs Temp Pulse Resp BP Pulse Ox 97 F L 90 20 176/90 98 11/06/21 06:35 11/06/21 06:35 11/06/21 06:35 11/06/21 06:35 11/06/21 06:35 - General well developed, well nourished, no distress - Eyes PERRL - ENT normal pinna - Neck no masses - Respiratory normal expansion - Cardiovascular Rhythm: regular - Abdomen Abdomen: soft Hernia: inguinal (Left inguinal hernia) Assessment and Plan Assessment: Left internal hernia. We'll perform laparoscopic robotic-assisted repair.
[2021-11-06] MEDS ORDERED: BUPIVACAIN-EPI 0.25%-1:200,000 30 ML VIAL SQ ONE (08:16)
--- NOTE | 2021-11-06 09:03 | P.OP ---
Date of Procedure: 11/06/21 Preoperative Diagnosis: Left inguinal hernia Postoperative Diagnosis: Left incarcerated inguinal hernia Procedure(s) Performed: Laparoscopic robotic Incarcerated left hernia Excision of cord lipoma Transversus abdominis plane block Anesthesia: TRACEY Surgeon: Jose Bullock Pathology: other (Live cord lipoma) Condition: stable Disposition: PACU Description of Procedure: The patient's placed on the operating table in the supine position. The patient received general anesthesia. The patient's abdomen was prepped and draped in usual sterile fashion. The skin was anesthetized 1% local Xylocaine at the incision sites. Using an 11 blade a skin incision was made at the umbilicus. The fascia was grasped with a Mirna and then the peritoneal cavity was entered with the Veress needle. Position of the Veress needle was confirmed with a positive drop test. After adequate insufflation a 5 mm trocar was placed into the peritoneal cavity. The Laparoscope was placed the peritoneal cavity. And a robotic 8 mm trocar was placed in the right lateral position and then another 8 mm robotic trochars placed in the left lateral position. The original 5 mm trocar was exchanged for a 12 mm trocar. The patient was placed in reverse Trendelenburg and then the patient was docked to the robot. A four-quadrant transversus abdominis plane block was performed with 1% local Xylocaine. Next the peritoneum over top of the hernia was incised and then using blunt and sharp dissection and electrocautery the hernia sac was dissected free from the floor of the inguinal canal. The cord lipoma was dissected free and sent to pathology The hernia sac was completely reduced into the peritoneal cavity. And then using the [employer] recruiter mesh the hernia was repaired. The peritoneum was then sutured with 20V lock suture. The patient was then undocked the robot. The needle was withdrawn from the peritoneal cavity. The umbilical trocar site was closed with 0 Ethibond suture. The skin was closed interrupted 3-0 Monocryl suture. Dermabond dressing was applied. Patient was sent to recovery in stable condition.
[2021-11-06] MEDS: HYDROmorphone 0.5 MG/0.5 ML SYRINGE IVP PRN ×4 (09:10→09:45)
[2021-11-06 09:12] VITALS: TEMP 97
[2021-11-06 10:48] VITALS: RESP 16
[2021-11-06 11:59] VITALS: BP 135/73; PULSE 62
== END 2021-11-06 12:42 | disposition home or self-care (01) ==
LOC: OR 05:45
PROVIDERS: ATTEND Surgery
DX: K40.30 Unilateral inguinal hernia, with obstruction, without gangrene, not specified as recurrent (principal); D17.6 Benign lipomatous neoplasm of spermatic cord; I10 Essential (primary) hypertension; K21.9 Gastro-esophageal reflux disease without esophagitis; I25.2 Old myocardial infarction; Z87.891 Personal history of nicotine dependence; E78.5 Hyperlipidemia, unspecified; Z82.49 Family history of ischemic heart disease and other diseases of the circulatory system; I25.10 Atherosclerotic heart disease of native coronary artery without angina pectoris; Z79.82 Long term (current) use of aspirin; Z79.899 Other long term (current) drug therapy; Z79.01 Long term (current) use of anticoagulants; Z87.19 Personal history of other diseases of the digestive system; Z86.14 Personal history of Methicillin resistant Staphylococcus aureus infection
CPT/HCPCS: 49650; 88304; C1781; J2250; J0330; J1100; J2710; J0690; J2405; J3010; J2704; J1170; J1644; J2001

== ENCOUNTER 2021-11-21 07:58 | Emergency (ER) | payer BC ==
[2021-11-21 08:03] VITALS: TEMP 97.8
--- NOTE | 2021-11-21 08:11 | ED ---
General Adult HPI - General Chief complaint: Shortness of Breath Stated complaint: SOB, heart hx Time Seen by Provider: 11/21/21 08:08 Source: patient, RN notes reviewed Mode of arrival: ambulatory Limitations: no limitations - History of Present Illness Initial comments: Patient is a pleasant 56-year-old male presenting to the emergency department with concerns with dyspnea. Patient did have a heart attack around 6 weeks ago. Patient has had mild symptoms since then, worse over the past couple weeks. Patient gets very short of breath with a flight of stairs. No orthopnea. No leg pain or leg swelling. Minimal cough. Patient does have a sore throat. Patient has had some mild chest pressure. Patient does also have history of hernia surgery around a week ago. No problems with hernia surgery. - Related Data Home Medications Medication Instructions Recorded Confirmed Atorvastatin [Lipitor] 80 mg PO DAILY@169911/02/21 11/21/21 Losartan [Cozaar] 50 mg PO DAILY@169911/02/21 11/21/21 Aspirin 81 mg PO DAILY@169911/21/21 11/21/21 Clopidogrel [Plavix] 75 mg PO DAILY@169911/21/21 11/21/21 Previous Rx's Medication Instructions Recorded Nirmatrelvir/Ritonavir [Paxlovid 1 each PO BID #10 tab 11/21/21 2X150 mg-100 mg (Eua)] Allergies Allergy/AdvReac Type Severity Reaction Status Date / Time No Known Allergies Allergy Verified 11/21/21 08:47 Review of Systems ROS Statement: Those systems with pertinent positive or pertinent negative responses have been documented in the HPI. ROS Other: All systems not noted in ROS Statement are negative. Constitutional: Denies: fever Eyes: Denies: eye pain ENT: Reports: throat pain. Denies: ear pain Respiratory: Reports: as per HPI Cardiovascular: Reports: as per HPI Endocrine: Reports: fatigue Gastrointestinal: Denies: abdominal pain Genitourinary: Denies: dysuria Musculoskeletal: Denies: back pain Skin: Denies: rash Neurological: Denies: weakness Past Medical History Past Medical History: GERD/Reflux, Myocardial Infarction ([place]) Additional Past Medical History / Comment(s): Diverticulitis, Last Myocardial Infarction Date:: 09/28/21 History of Any Multi-Drug Resistant Organisms: MRSA Date of last positivie culture/infection: 2010 MDRO Source:: finger stitches got infected Past Surgical History: Heart Catheterization, Hernia Repair Additional Past Surgical History / Comment(s): left third and fourth fingertip amputation, rt inguinal hernia, 09/28/21 heart cath Past Anesthesia/Blood Transfusion Reactions: No Reported Reaction Past Psychological History: No Psychological Hx Reported Smoking Status: Former smoker Past Alcohol Use History: Occasional Past Drug Use History: Marijuana - Past Family History Mother Family Medical History: No Reported History Additional Family Medical History / Comment(s): . General Exam Limitations: no limitations General appearance: alert, in no apparent distress Head exam: Present: normocephalic Eye exam: Present: normal appearance ENT exam: Present: other (Mild pharyngeal erythema) Neck exam: Present: normal inspection Respiratory exam: Present: normal lung sounds bilaterally. Absent: respiratory distress Cardiovascular Exam: Present: regular rate, normal rhythm Expanded Peripheral pulses: 2+: Radial (R), Radial (L), Posterior Tibialis (R), Posterior Tibialis (L) GI/Abdominal exam: Present: soft. Absent: tenderness Extremities exam: Present: normal inspection. Absent: pedal edema, calf tenderness Neurological exam: Present: alert Psychiatric exam: Present: normal affect, normal mood Skin exam: Present: normal color Course Vital Signs 11/21/21 11/21/21 11/21/21 08:00 09:02 11:24 Temperature 97.8 F Pulse Rate 77 84 Respiratory 20 20 18 Rate Blood Pressure 130/84 130/78 O2 Sat by Pulse 99 100 Oximetry EKG Findings - EKG Comments: EKG Findings:: Sinus rhythm 74. DC 161. QRS 96. QT 381. QTC 408. Normal axis. LVH criteria. Inferior Q waves. No acute ST change. Medical Decision Making - Medical Decision Making Patient reevaluated. Patient and family updated on results including computed tomography scan and need for follow-up. Patient states symptoms mostly started 3 days ago and this does make him a candidate for Paxlovid - Lab Data Result diagrams: 11/21/21 08:29 11/21/21 08:29 Lab Results 11/21/21 11/21/21 11/21/21 Range/Units 08:29 08:29 08:29 WBC 6.7 (3.8-10.6) k/uL RBC 4.90 (4.30-5.90) m/uL Hgb 15.4 (13.0-17.5) gm/dL Hct 47.2 (39.0-53.0) % MCV 96.5 (80.0-100.0) fL MCH 31.4 (25.0-35.0) pg MCHC 32.5 (31.0-37.0) g/dL RDW 13.1 (11.5-15.5) % Plt Count 270 (150-450) k/uL MPV 7.1 Neutrophils % 61 % Lymphocytes % 30 % Monocytes % 6 % Eosinophils % 1 % Basophils % 1 % Neutrophils # 4.1 (1.3-7.7) k/uL Lymphocytes # 2.0 (1.0-4.8) k/uL Monocytes # 0.4 (0-1.0) k/uL Eosinophils # 0.1 (0-0.7) k/uL Basophils # 0.1 (0-0.2) k/uL PT 10.5 (9.0-12.0) sec INR 1.0 (<1.2) APTT 24.9 (22.0-30.0) sec D-Dimer 2.72 H (<0.60) mg/L FEU Sodium 139 (137-145) mmol/L Potassium 4.4 (3.5-5.1) mmol/L Chloride 106 (98-107) mmol/L Carbon Dioxide 18 L (22-30) mmol/L Anion Gap 15 mmol/L BUN 20 (9-20) mg/dL Creatinine 0.88 (0.66-1.25) mg/dL Est GFR (CKD-EPI)AfAm >90 (>60 ml/min/1.73 sqM) Est GFR (CKD-EPI)NonAf >90 (>60 ml/min/1.73 sqM) Glucose 95 (74-99) mg/dL Plasma Lactic Acid Bunny (0.7-2.0) mmol/L Calcium 9.0 (8.4-10.2) mg/dL Total Bilirubin 0.5 (0.2-1.3) mg/dL AST 42 (17-59) U/L ALT 23 (4-49) U/L Alkaline Phosphatase 73 (38-126) U/L Troponin I (0.000-0.034) ng/mL NT-Pro-B Natriuret Pep pg/mL Total Protein 7.9 (6.3-8.2) g/dL Albumin 4.6 (3.5-5.0) g/dL Coronavirus (PCR) (Not Detectd) Influenza Type A RNA (Not Detectd) Influenza Type B (PCR) (Not Detectd) Group A Strep (PCR) (Not Detectd) 11/21/21 11/21/21 11/21/21 Range/Units 08:29 08:29 08:29 WBC (3.8-10.6) k/uL RBC (4.30-5.90) m/uL Hgb (13.0-17.5) gm/dL Hct (39.0-53.0) % MCV (80.0-100.0) fL MCH (25.0-35.0) pg MCHC (31.0-37.0) g/dL RDW (11.5-15.5) % Plt Count (150-450) k/uL MPV Neutrophils % % Lymphocytes % % Monocytes % % Eosinophils % % Basophils % % Neutrophils # (1.3-7.7) k/uL Lymphocytes # (1.0-4.8) k/uL Monocytes # (0-1.0) k/uL Eosinophils # (0-0.7) k/uL Basophils # (0-0.2) k/uL PT (9.0-12.0) sec INR (<1.2) APTT (22.0-30.0) sec D-Dimer (<0.60) mg/L FEU Sodium (137-145) mmol/L Potassium (3.5-5.1) mmol/L Chloride (98-107) mmol/L Carbon Dioxide (22-30) mmol/L Anion Gap mmol/L BUN (9-20) mg/dL Creatinine (0.66-1.25) mg/dL Est GFR (CKD-EPI)AfAm (>60 ml/min/1.73 sqM) Est GFR (CKD-EPI)NonAf (>60 ml/min/1.73 sqM) Glucose (74-99) mg/dL Plasma Lactic Acid Bunny 1.1 (0.7-2.0) mmol/L Calcium (8.4-10.2) mg/dL Total Bilirubin (0.2-1.3) mg/dL AST (17-59) U/L ALT (4-49) U/L Alkaline Phosphatase (38-126) U/L Troponin I <0.012 (0.000-0.034) ng/mL NT-Pro-B Natriuret Pep 52 pg/mL Total Protein (6.3-8.2) g/dL Albumin (3.5-5.0) g/dL Coronavirus (PCR) (Not Detectd) Influenza Type A RNA (Not Detectd) Influenza Type B (PCR) (Not Detectd) Group A Strep (PCR) (Not Detectd) 11/21/21 11/21/21 11/21/21 Range/Units 08:29 08:29 08:29 WBC (3.8-10.6) k/uL RBC (4.30-5.90) m/uL Hgb (13.0-17.5) gm/dL Hct (39.0-53.0) % MCV (80.0-100.0) fL MCH (25.0-35.0) pg MCHC (31.0-37.0) g/dL RDW (11.5-15.5) % Plt Count (150-450) k/uL MPV Neutrophils % % Lymphocytes % % Monocytes % % Eosinophils % % Basophils % % Neutrophils # (1.3-7.7) k/uL Lymphocytes # (1.0-4.8) k/uL Monocytes # (0-1.0) k/uL Eosinophils # (0-0.7) k/uL Basophils # (0-0.2) k/uL PT (9.0-12.0) sec INR (<1.2) APTT (22.0-30.0) sec D-Dimer (<0.60) mg/L FEU Sodium (137-145) mmol/L Potassium (3.5-5.1) mmol/L Chloride (98-107) mmol/L Carbon Dioxide (22-30) mmol/L Anion Gap mmol/L BUN (9-20) mg/dL Creatinine (0.66-1.25) mg/dL Est GFR (CKD-EPI)AfAm (>60 ml/min/1.73 sqM) Est GFR (CKD-EPI)NonAf (>60 ml/min/1.73 sqM) Glucose (74-99) mg/dL Plasma Lactic Acid Bunny (0.7-2.0) mmol/L Calcium (8.4-10.2) mg/dL Total Bilirubin (0.2-1.3) mg/dL AST (17-59) U/L ALT (4-49) U/L Alkaline Phosphatase (38-126) U/L Troponin I (0.000-0.034) ng/mL NT-Pro-B Natriuret Pep pg/mL Total Protein (6.3-8.2) g/dL Albumin (3.5-5.0) g/dL Coronavirus (PCR) Detected A (Not Detectd) Influenza Type A RNA Not Detected (Not Detectd) Influenza Type B (PCR) Not Detected (Not Detectd) Group A Strep (PCR) NOT DETECTED (Not Detectd) - Radiology Data Radiology results: report reviewed (Computed tomography scan negative for pulmonary embolism. There are nodules.), image reviewed (Chest x-ray shows no acute process) Disposition Clinical Impression: COVID-19 Disposition: HOME SELF-CARE Condition: Stable Instructions (If sedation given, give patient instructions): COVID-19 (Coronavirus Disease 2019) (ED) Additional Instructions: Please follow-up with primary care physician in the next couple days for recheck. [id number] vitamin C, vitamin D, and zinc. Prescription has been sent to pharmacy. Continue to isolate for a total of 5 days, followed by mask for 5 days. Prescriptions: Nirmatrelvir/Ritonavir [Paxlovid 2X150 mg-100 mg (Eua)] 1 each PO BID #10 tab Is patient prescribed a controlled substance at d/c from ED?: No Referrals: Angelique Weiner MD [Primary Care Provider] - 1-2 days Time of Disposition: 11:27
[2021-11-21 08:41] LABS: Basophils # (A) 0.1 k/uL (0-0.2); Basophils % (A) 1 %; Eosinophils # (A) 0.1 k/uL (0-0.7); Eosinophils % (A) 1 %; HCT 47.2 % (39.0-53.0); HGB 15.4 gm/dL (13.0-17.5); Lymphocytes % (A) 30 %; MCH 31.4 pg (25.0-35.0); MCHC 32.5 g/dL (31.0-37.0); MCV 96.5 fL (80.0-100.0); Mean Platelet Volume 7.1; Monocytes # (A) 0.4 k/uL (0-1.0); Monocytes % (A) 6 %; Neutrophils # (A) 4.1 k/uL (1.3-7.7); Neutrophils % (A) 61 %; Platelet Count 270 k/uL (150-450); RDW 13.1 % (11.5-15.5); WBC 6.7 k/uL (3.8-10.6)
--- NOTE | 2021-11-21 08:59 | XR ---
EXAMINATION TYPE: XR chest 2V DATE OF EXAM: 11/21/2021 8:55 AM COMPARISON: Chest radiographs from 09/28/2021. TECHNIQUE: XR chest 2V Frontal and lateral views of the chest. CLINICAL INDICATION:Male, 56 years old with history of difficulty breathing; FINDINGS: Lungs/Pleura: There is no evidence of pleural effusion, focal consolidation, or pneumothorax. Pulmonary vascularity: Unremarkable. Heart/mediastinum: Cardiomediastinal silhouette is unremarkable. Musculoskeletal: No acute osseous pathology. IMPRESSION: No acute cardiopulmonary disease/process. No significant change from prior exam.
[2021-11-21 09:02] LABS: Partial Thromboplastin Time 24.9 sec (22.0-30.0); Prothrombin Time 10.5 sec (9.0-12.0)
[2021-11-21 09:13] LABS: ALT 23 U/L (4-49); AST 42 U/L (17-59); African American GFR (CKD) >90 (>60 ml/min/1.73 sqM); Albumin 4.6 g/dL (3.5-5.0); Alkaline Phosphatase 73 U/L (38-126); Anion Gap 15 mmol/L; Blood Urea Nitrogen 20 mg/dL (9-20); Carbon Dioxide 18 mmol/L (22-30); Chloride 106 mmol/L (98-107); Glucose 95 mg/dL (74-99); Non-African American GFR(CKD) >90 (>60 ml/min/1.73 sqM); Potassium 4.4 mmol/L (3.5-5.1); Sodium 139 mmol/L (137-145); Total Bilirubin 0.5 mg/dL (0.2-1.3); Total Protein 7.9 g/dL (6.3-8.2)
--- NOTE | 2021-11-21 10:02 | CT ---
EXAMINATION TYPE: CT angio chest CT DLP: 449.7 mGycm, Automated exposure control for dose reduction was used. DATE OF EXAM: 11/21/2021 9:41 AM COMPARISON: Chest radiograph from same day. CLINICAL INDICATION:Male, 56 years old with history of dyspnea; elevated d-dimer TECHNIQUE/CONTRAST: CTA scan of the thorax is performed with IV Contrast, patient injected with 100 mL of Isovue 370, pul monary embolism protocol. MIP images are created and reviewed. FINDINGS: Pulmonary Artery: There is no evidence for a filling defect within the pulmonary vasculature to sugge st acute pulmonary embolism. The pulmonary artery is of normal size. Lungs/Pleura: No evidence of focal consolidation, pleural effusion or pneumothorax. Linear right lowe r lobe scarring and/or atelectasis. Left lower lobe 1.5 cm nodule with central dystrophic calcificati on (series 406, image 82). Additional left lower lobe 1.2 cm nodule with central dystrophic calcifica tion (series 406, image 108). Airway: Large airways are patent. Heart: Heart is within normal limits for size. No pericardial effusion. Vasculature: No evidence of aortic aneurysm. Mediastinum: No gross evidence of adenopathy. Musculoskeletal: No acute osseous abnormalities Soft Tissues: Unremarkable. Lower neck: No significant findings. Upper Abdomen: Fatty infiltration of the pancreas. IMPRESSION: 1. No evidence of pulmonary embolism or acute thoracic process. 2. Two left lower lobe pulmonary nodules with central dystrophic calcification consistent with pulmon lety hamartomas.
[2021-11-21 11:25] VITALS: BP 130/78; PULSE 84; RESP 18
== END 2021-11-21 11:37 | disposition home or self-care (01) ==
LOC: EC 07:58
DX: U07.1 COVID-19 (principal); I25.2 Old myocardial infarction; Z87.891 Personal history of nicotine dependence
CPT/HCPCS: 36415; 93005; 87651; 85379; 83880; 80053; 83605; 84484; 85025; 85610; 85730; 87502; 87635; 71046; 71275; 99285; Q9967